=== PATIENT | male | born 1970 | race Two or more races ===

== ENCOUNTER 2020-11-30 18:03 | Emergency (ER) | payer OTHER, SELFPAY ==
[2020-11-30 18:23] VITALS: BP 124/98; PULSE 90; RESP 18; TEMP 37.7; O2SAT 97; BMI 25.7
[2020-11-30] MEDS: Acetaminophen 325 MG TABLET 650 MG PO (18:52)
[2020-11-30 19:17] LABS: Influenza A PCR NEGATIVE (Negative); Influenza B PCR NEGATIVE (Negative); Resp Syncy Virus RNA Qual PCR NEGATIVE (Negative); SARS COV2 PCR INHOUSE POSITIVE (Negative)
--- NOTE | 2020-11-30 20:21 | ED.GENADULT ---
HPI - General Adult General Chief complaint: General Medical Stated complaint: BODY WEAKNESS Time Seen by Provider: 11/30/20 20:21 Source: patient Mode of arrival: ambulatory Limitations: no limitations History of Present Illness HPI narrative: Patient no significant past medical history unvaccinated for COVID in complaining of cough malaise low-grade fever mild shortness of breath for last 3- 4 days no chest pain no loss of taste sensation no other family member sick Related Data Previous Rx's Medication Instructions Recorded azithromycin 250 mg tablet 250 mg PO DAILY 4 Days #4 tab 11/30/20 (Zithromax) codeine 10 mg-guaifenesin 100 mg/5 10 ml PO Q4-6H PRN #237 ml 11/30/20 mL oral liquid dexamethasone 6 mg tablet 6 mg PO DAILY #7 tab 11/30/20 (Decadron) Allergies Allergy/AdvReac Type Severity Reaction Status Date / Time No Known Allergies Allergy Unverified 01/11/20 16:45 Review of Systems Review of Systems: Yes all other systems are reviewed and are negative PMFSH Past Medical History Medical History Penile lump Social History Social History Advance Directives: No Physical Exam Vital Signs: Vital Signs: Last Vital Signs Temp 100 F 11/30/20 18:23 Pulse 90 11/30/20 18:23 Resp 18 11/30/20 18:23 BP 124/98 H 11/30/20 18:23 Pulse Ox 97 11/30/20 18:23 Body Mass Index 25.7 Appearance: Alert. Oriented X3. No acute distress. ENT: Pharynx normal. Oral Mucosa moist Neck: Normal inspection. Neck supple. CVS: Normal heart rate and rhythm. Pulses normal. Respiratory: No respiratory distress. Equal air entry bilateral, no wheezing/rales/rhonchi Abdomen: Soft and nontender. Bowel sounds are present, no mass palpable, no CVA tenderness Skin: Skin warm and dry. Normal skin color. Normal skin turgor. Extremities: No lower extremity edema. No calf tenderness Neuro: Oriented X 3. Medical Decision Making Lab Data Lab results reviewed: Yes I reviewed the patient's lab results. Labs: Lab Results 11/30/20 Range/Units 18:27 Coronavirus (PCR) POSITIVE A (Negative) Influenza Type A (PCR) NEGATIVE (Negative) Influenza Type B (PCR) NEGATIVE (Negative) RSV RNA Qual (PCR) NEGATIVE (Negative) Discharge Plan Discharge Clinical Impression: COVID-19 Patient Disposition: Home, Self-Care Instructions: COVID-19 (Coronavirus Disease 2019) (ED) Additional Instructions: Drink plenty of fluids Report to ER if increased shortness of breath take medication as prescribed Isolation as advised Prescriptions: New dexamethasone [Decadron] 6 mg tablet 6 mg PO DAILY Qty: 7 RF: 0 azithromycin [Zithromax] 250 mg tablet 250 mg PO DAILY 4 Days Qty: 4 RF: 0 codeine-guaifenesin 10-100 mg/5 mL liquid 10 ml PO Q4-6H PRN (Reason: cough) Qty: 237 RF: 0
== END 2020-11-30 20:56 | disposition home or self-care (01) ==
PROVIDERS: Emergency Provider Internal Medicine
DX: U07.1 COVID-19 (principal)
CPT/HCPCS: 0241U; 36415; 99283